=== PATIENT | female | born 1935 | race Caucasian/White ===

== ENCOUNTER 2021-03-13 23:26 | Inpatient (IN) | payer MEDICARE, OTHER ==
[~2021-03-13] VITALS: Ht 152.4 cm; Wt 77.1 kg
[2021-03-13] MEDS ORDERED: ISOS60TA72 PO (23:57)
[2021-03-13] MEDS ORDERED: AMLO2.5T4 PO (23:57)
[2021-03-13] MEDS ORDERED: METO25TA6 PO (23:57)
[2021-03-13] MEDS ORDERED: METF-494 PO (23:57)
[2021-03-13] MEDS ORDERED: GABA-532 PO (23:57)
[2021-03-14] MEDS ORDERED: levoFLOXacin 750 MG/D5W 150 ML PIGGYBACK IV ONE
--- NOTE | 2021-03-14 00:05 | NUR ---
PT BIB RA FROM HOME C/O SOB, PT O2 SAT ON FIELD WAS IN 80'S, PARAMEDICS GAVE BREATHING TX ON FIELD. HX OF PNA 3 DAYS AGO, NO SOB OR LABORED BREATHING UPON ARRIVAL. DENIES ANY CP/PRESSURE. NO GI/ DISTRESS. CLEAR SPEECH, COMPLETE SENTENCES. DAUGHTER AT BEDSIDE.
--- NOTE | 2021-03-14 00:06 | NUR ---
DR. BARAJAS AT BEDSIDE, MSE IN PROGRESS.
[2021-03-14] MEDS ORDERED: METF-440 PO (00:16)
[2021-03-14] MEDS ORDERED: VALS1TAB4 PO (00:16)
[2021-03-14] MEDS ORDERED: APIX2.5T PO (00:16)
[2021-03-14] MEDS ORDERED: ISOS30TA9 PO (00:16)
[2021-03-14] MEDS ORDERED: AMLO-212 PO (00:16)
[2021-03-14] MEDS ORDERED: SIMV-49 PO (00:16)
[2021-03-14] MEDS ORDERED: TICA90TA PO (00:16)
[2021-03-14] MEDS ORDERED: METO-358 PO (00:16)
[2021-03-14 00:19] LABS: HEMATOCRIT 31.9 % (31.2-41.9); MEAN CORPUSCULAR HEMOGLOBIN 30.5 uug (24.7-32.8); MEAN CORPUSCULAR VOLUME 92.2 fL (75.5-95.3); PLATELET COUNT (AUTO) 278 K/uL (179-408)
[2021-03-14 00:27] LABS: ABG BASE EXCESS -3.2 mmol/L; ABG HCO3 19.4 mmol/L; ABG PCO2 27.2 mmHg (35.0-45.0); ABG PO2 96.9 mmHg (75.0-100.0); ABG SITE LEFT RADIAL; COHb 0.3 % (0.5-1.5); MetHb 0.2 % (0.0-1.5); VENT MODE Nasal Cannula
[2021-03-14] MEDS ORDERED: levoFLOXacin 750MG/D5W 150 ML IV ONE (00:32)
[2021-03-14 00:41] LABS: CREATININE 1.2 mg/dL (0.6-1.3)
[2021-03-14 00:53] LABS: BILIRUBIN,DIRECT 0.1 mg/dL (0.0-0.2); BILIRUBIN,TOTAL 0.4 mg/dL (0.2-1.0); TOTAL PROTEIN, SERUM 7.3 g/dL (6.4-8.2)
[2021-03-14] MEDS ORDERED: ASPIRIN 81 MG TAB.CHEW PO ONE (01:00)
[2021-03-14] MEDS ORDERED: NITROGLYCERIN OINT 1 GM PACKET TP ONE ×2 (01:00→01:12)
[2021-03-14] MEDS ORDERED: ASPIRIN 81 MG TAB.CHEW ONE (01:12)
[2021-03-14] MEDS ORDERED: IV NORMAL SALINE 250 ML IV ONE (01:44)
[2021-03-14] MEDS ORDERED: IOHEXOL 350 100 ML INFUS..BTL ONE (01:44)
[2021-03-14] MEDS ORDERED: SWABABLE VALVE TRANSFER SET EA MC ONE (01:44)
--- NOTE | 2021-03-14 01:46 | NUR ---
PT TAKEN DOWN FOR CTA.
--- NOTE | 2021-03-14 02:00 | NUR ---
PT RETURNED FROM CT.
[2021-03-14] MEDS ORDERED: MAGNESIUM HYDROXIDE 30 ML LIQUID UDC PO PRN (03:15)
[2021-03-14] MEDS ORDERED: ONDANSETRON 4 MG/2 ML VIAL IV PRN (03:15)
[2021-03-14] MEDS ORDERED: REMEDY ESSENTIAL ZINC PASTE 113 GM TP PRN (03:15)
[2021-03-14] MEDS ORDERED: ENOXAPARIN SODIUM 30 MG/0.3 ML DISP.SYRIN SQ SCH (04:15)
--- NOTE | 2021-03-14 04:35 | NUR ---
ASSISTED PT TO AMBULATE TO RESTROOM, STEADY GAIT.
[2021-03-14] MEDS ORDERED: ENOXAPARIN SODIUM 30 MG/0.3 ML DISP.SYRIN ONE (04:52)
[2021-03-14] MEDS: ACETAMINOPHEN 325 MG TABLET PO PRN ×2 (06:00→17:04)
[2021-03-14] MEDS ORDERED: ACETAMINOPHEN 325 MG TABLET ONE (06:08)
[2021-03-14] MEDS: PANTOPRAZOLE SODIUM 40 MG TABLET.DR PO SCH (06:59)
[2021-03-14] MEDS ORDERED: PANTOPRAZOLE SODIUM 40 MG TABLET.DR PO ONE (07:07)
--- NOTE | 2021-03-14 07:44 | NUR ---
Patient is awake and alert with no complaints. She asked for some water, she drank a full cup. Denies pain ,has some mild SOB at rest. On O2, Sp02 at 99%
--- NOTE | 2021-03-14 09:31 | NUR ---
Patient's son visited her for 20 minutes. She is now sitting up eating breakfast.
--- NOTE | 2021-03-14 13:40 | NUR ---
Hand off report give3n to Khadijah ZUNIGA.
--- NOTE | 2021-03-14 13:55 | NUR ---
received from ER per bryce awake alert and oriented, Frisian speaking, daughter with her, does interpret for her, initial assessment done, oriented to bed controls and call button, bed alarm on, denies of pain, tele applied-SR BBB 70's, 02 at 4l/nc- sat at 99%, gets short of breath with exertion, head of bed elevated, denies of pain at this time, call light within reach, placed on droplet isolation PCR pending
[2021-03-14 13:59] VITALS: BP 105/51
[2021-03-14] MEDS ORDERED: DEXTROSE 50% 50 ML DISP.SYRIN IV PRN (14:15)
[2021-03-14 16:05] VITALS: BP 147/62
[2021-03-14] MEDS: BLOOD SUGAR DIAGNOSTIC 1 EACH STRIP VI SCH ×2 (17:02→21:41)
[2021-03-14] MEDS: INSULIN REGULAR, HUMAN 300 UNIT/3 ML VIAL SQ PRN ×2 (17:03→21:42)
--- NOTE | 2021-03-14 17:04 | NUR ---
medicated for c/o pain on the left knee
[2021-03-14] MEDS: TICAGRELOR 90 MG TABLET PO SCH (17:05)
[2021-03-14] MEDS ORDERED: METFORMIN HCL 500 MG TABLET PO SCH (18:00)
--- NOTE | 2021-03-14 18:11 | NUR ---
states feeling better, pain relieved, no distress noted, remains on 4l/nc with sat 99%, mrsa swab done and sent to lab, tele remains SR BBB 80's, safety measures maintained, call light within reach
[2021-03-14 20:00] VITALS: BP 136/55
[2021-03-14] MEDS ORDERED: GABA-532 PO (20:12)
[2021-03-14] MEDS ORDERED: DONE10TA44 PO (20:13)
[2021-03-14] MEDS ORDERED: ICOS1CAP PO (20:14)
[2021-03-14] MEDS ORDERED: MEMA7CAP2 PO (20:15)
[2021-03-14] MEDS ORDERED: ERGO500040 PO (20:17)
[2021-03-14] MEDS ORDERED: FERR325T28 PO (20:17)
[2021-03-14] MEDS ORDERED: ASCO100031 PO (20:18)
[2021-03-14] MEDS ORDERED: SIMVASTATIN 40 MG TABLET PO SCH (21:00)
[2021-03-14] MEDS: APIXABAN 2.5 MG TABLET PO SCH (21:31)
[2021-03-14] MEDS: SIMVASTATIN 20 MG TABLET PO SCH (21:31)
[2021-03-15] MEDS ORDERED: levoFLOXacin 750MG/D5W 750 MG in PREMIXED 1 EACH IV SCH
[2021-03-15 04:00] VITALS: BP 135/57
[2021-03-15] MEDS: PANTOPRAZOLE SODIUM 40 MG TABLET.DR PO SCH (06:42)
[2021-03-15] MEDS: BLOOD SUGAR DIAGNOSTIC 1 EACH STRIP VI SCH ×4 (06:43→20:50)
[2021-03-15 06:55] LABS: MEAN CORPUSCULAR HEMOGLOBIN 30.9 uug (24.7-32.8); MEAN CORPUSCULAR VOLUME 91.9 fL (75.5-95.3); PLATELET COUNT (AUTO) 227 K/uL (179-408)
[2021-03-15 07:32] LABS: BILIRUBIN,TOTAL 0.5 mg/dL (0.2-1.0); CREATININE 1.2 mg/dL (0.6-1.3); MAGNESIUM 1.6 mg/dL (1.8-2.4); PHOSPHOROUS 3.8 mg/dL (2.5-4.9); POTASSIUM 4.1 mmol/L (3.5-5.1); TOTAL PROTEIN, SERUM 6.9 g/dL (6.4-8.2)
[2021-03-15] MEDS: INSULIN REGULAR, HUMAN 300 UNIT/3 ML VIAL SQ PRN ×4 (08:30→20:52)
--- NOTE | 2021-03-15 08:30 | NUR ---
awake alert and and oriented, denies of pain, comfortable on 4l/nc sat at 99%, tele ST 101, needs attended and breakfast served, call light within reach
[2021-03-15] MEDS: HYDROCHLOROTHIAZIDE 12.5 MG CAPSULE PO SCH (08:31)
[2021-03-15] MEDS: TICAGRELOR 90 MG TABLET PO SCH ×2 (08:33→17:07)
[2021-03-15] MEDS: APIXABAN 2.5 MG TABLET PO SCH ×2 (08:33→20:40)
[2021-03-15] MEDS: METOPROLOL SUCCINATE XL 50 MG TAB.SR.24H PO SCH (08:43)
[2021-03-15] MEDS: ISOSORBIDE DINITRATE 10 MG TABLET PO SCH (08:44)
[2021-03-15] MEDS ORDERED: ASPIRIN EC 81 MG TABLET.DR PO SCH (09:00)
[2021-03-15] MEDS ORDERED: Medication Not On Formulary EA (Isosorbide Dinitrate 30 MG) PO SCH (09:00)
[2021-03-15] MEDS: AMLODIPINE 5 MG TABLET PO SCH (09:00)
[2021-03-15] MEDS: VALSARTAN 160 MG TABLET PO SCH (09:00)
--- NOTE | 2021-03-15 09:30 | NUR ---
Heart rate up to 130's a fib, pt denies of chest pain comfortable, BP 127/47 sat at 99%, rapid response called, stat ekg done showing a fib with RVR, called Abram Fischer and informed with orders- carried out, called Dr Strong with orders for amiodarone bolus followed by drip per protocol, continued to monitor
[2021-03-15] MEDS ORDERED: METOPROLOL TARTRATE 5 MG/5 ML VIAL IVP ONE (09:45)
[2021-03-15] MEDS: MAGNESIUM SULFATE/D5W 100 ML IV SCH ×2 (09:57→11:12)
[2021-03-15] MEDS ORDERED: AMIODARONE HCL IV 150 MG in IV DEXTROSE 5% 100 ML IV ONE (10:45)
--- NOTE | 2021-03-15 11:00 | NUR ---
amiodarone bolus followed by amiodarone 1mg/min at 33.3ml/hr started, will continue to monitor
[2021-03-15] MEDS: AMIODARONE HCL IV 450 MG in IV DEXTROSE 5% 250 ML IV PRN ×3 (11:39→22:30)
[2021-03-15 11:56] VITALS: BP 110/54
--- NOTE | 2021-03-15 12:00 | NUR ---
still on afib rvr 120's, no distress noted, BP remains stable, will continue to monitor
--- NOTE | 2021-03-15 14:13 | NUR ---
converted to SR 80's, amiodarone drip at 1mg/min ongoing
[2021-03-15] MEDS ORDERED: SIMV-46 PO (15:54)
--- NOTE | 2021-03-15 17:40 | NUR ---
remains on SR on 76, drip decreased to 0.5mg/min as per protocol, no distress noted, all needs attended and met, call light within reach
[2021-03-15 20:21] VITALS: BP 122/50
[2021-03-15] MEDS: SIMVASTATIN 20 MG TABLET PO SCH (20:39)
[2021-03-15] MEDS: CEFTRIAXONE 1 G in IV DEXTROSE 5% 50 ML IV SCH (23:37)
[2021-03-16] MEDS ORDERED: levoFLOXacin 750MG/D5W 750 MG in PREMIXED 1 EACH IV SCH
[2021-03-16 00:09] VITALS: BP 111/49
[2021-03-16 04:24] VITALS: BP 108/44
[2021-03-16] MEDS: BLOOD SUGAR DIAGNOSTIC 1 EACH STRIP VI SCH ×4 (06:32→21:07)
[2021-03-16] MEDS: PANTOPRAZOLE SODIUM 40 MG TABLET.DR PO SCH (06:32)
--- NOTE | 2021-03-16 06:50 | NUR ---
pt rested well in between care; remains on amio drip at 0.5 mg; needs attended; safety maintained; VS as charted. continue to monitor; continue plan of care.
[2021-03-16 07:11] LABS: HEMATOCRIT 26.8 % (31.2-41.9); MEAN CORPUSCULAR HEMOGLOBIN 30.6 uug (24.7-32.8); MEAN CORPUSCULAR VOLUME 90.9 fL (75.5-95.3); PLATELET COUNT (AUTO) 217 K/uL (179-408)
[2021-03-16 07:21] LABS: NEUTROPHILS % (MANUAL) 0 % (42-75)
[2021-03-16 07:28] LABS: CARBON DIOXIDE 24 mmol/L (21-32); CHLORIDE 100 mmol/L (98-107); CREATININE 1.4 mg/dL (0.6-1.3); GLUCOSE 149 mg/dL (74-106); MAGNESIUM 2.4 mg/dL (1.8-2.4); POTASSIUM 3.8 mmol/L (3.5-5.1); UREA NITROGEN, BLOOD 27 mg/dL (7-18)
[2021-03-16 08:00] VITALS: BP 125/46
--- NOTE | 2021-03-16 08:00 | NUR ---
AWAKE ALERT AND ORIENTED X3, 4L VIA NC SATURATING 95%-97%. OCCASIONAL DRY COUGH NOTED SR ON MONITOR
[2021-03-16] MEDS: HYDROCHLOROTHIAZIDE 12.5 MG CAPSULE PO SCH (08:11)
[2021-03-16] MEDS: AMLODIPINE 5 MG TABLET PO SCH (08:14)
[2021-03-16] MEDS: METFORMIN HCL 500 MG TABLET PO SCH ×2 (08:14→17:28)
[2021-03-16] MEDS: ISOSORBIDE DINITRATE 10 MG TABLET PO SCH (08:14)
[2021-03-16] MEDS: VALSARTAN 160 MG TABLET PO SCH (08:14)
[2021-03-16] MEDS: APIXABAN 2.5 MG TABLET PO SCH ×2 (08:15→20:50)
[2021-03-16] MEDS: METOPROLOL SUCCINATE XL 50 MG TAB.SR.24H PO SCH (08:16)
[2021-03-16] MEDS: INSULIN REGULAR, HUMAN 300 UNIT/3 ML VIAL SQ PRN ×3 (08:18→20:59)
[2021-03-16] MEDS: TICAGRELOR 90 MG TABLET PO SCH ×2 (08:19→16:08)
--- NOTE | 2021-03-16 10:00 | NUR ---
SEEN BY DR ORTIZ FOR FOLLOW-UP, AMIODARONE DRIP DISCONTINUED AND WILL START ON PO AMIODARONE. PATIENT REMAINS ON SR ON MONITOR
[2021-03-16] MEDS: AMIODARONE HCL 200 MG TABLET PO SCH ×2 (11:42→20:49)
[2021-03-16 12:00] VITALS: BP 116/50
--- NOTE | 2021-03-16 12:00 | NUR ---
PATIENT UP ON A COMMODE WITH 2L O2 PATIENT TOLERATED WELL SATURATING 98%. SR ON MONITOR, AMIODARONE DRIP COMPLETED. WILL OBSERVE
[2021-03-16] MEDS ORDERED: ERGOCALCIFEROL 50,000 UNIT CAPSULE PO SCH (13:45)
[2021-03-16 16:00] VITALS: BP 131/59
[2021-03-16] MEDS: FERROUS SULFATE 325 MG TABEC PO SCH (16:05)
[2021-03-16] MEDS: ASCORBIC ACID 500 MG TABLET PO SCH (16:07)
[2021-03-16] MEDS: MEMANTINE HCL 5 MG TABLET PO SCH (16:07)
[2021-03-16] MEDS: GABAPENTIN 100 MG CAPSULE PO SCH (16:08)
[2021-03-16] MEDS ORDERED: ASCORBIC ACID 1000 MG PO SCH (17:00)
--- NOTE | 2021-03-16 17:21 | NUR ---
RESTING COMFORTABLY IN BED WITH O2 AT 2L NC SATURATING 97% NO [place] OF DISTRESS. SR ON MONITOR
[2021-03-16] MEDS: SIMVASTATIN 20 MG TABLET PO SCH (20:50)
[2021-03-16 20:59] VITALS: BP 141/52
[2021-03-16] MEDS ORDERED: SIMVASTATIN 20 MG TABLET PO SCH (21:00)
[2021-03-16] MEDS: CEFTRIAXONE 1 G in IV DEXTROSE 5% 50 ML IV SCH (23:30)
[2021-03-17 00:35] VITALS: BP 149/57
[2021-03-17 04:00] VITALS: BP 130/52
[2021-03-17] MEDS: BLOOD SUGAR DIAGNOSTIC 1 EACH STRIP VI SCH ×4 (06:22→20:36)
[2021-03-17] MEDS: PANTOPRAZOLE SODIUM 40 MG TABLET.DR PO SCH (06:22)
[2021-03-17 06:26] LABS: HEMATOCRIT 25.8 % (31.2-41.9); MEAN CORPUSCULAR HEMOGLOBIN 30.1 uug (24.7-32.8); MEAN CORPUSCULAR VOLUME 89.9 fL (75.5-95.3); PLATELET COUNT (AUTO) 227 K/uL (179-408)
[2021-03-17 06:48] LABS: NEUTROPHILS % (MANUAL) 0 % (42-75)
[2021-03-17 07:03] LABS: CREATININE 1.3 mg/dL (0.6-1.3); POTASSIUM 3.6 mmol/L (3.5-5.1)
[2021-03-17] MEDS: INSULIN REGULAR, HUMAN 300 UNIT/3 ML VIAL SQ PRN ×3 (08:07→20:37)
[2021-03-17] MEDS: METFORMIN HCL 500 MG TABLET PO SCH ×2 (08:13→17:20)
[2021-03-17] MEDS: ASCORBIC ACID 500 MG TABLET PO SCH ×2 (08:13→16:43)
[2021-03-17] MEDS: MEMANTINE HCL 5 MG TABLET PO SCH ×2 (08:13→16:43)
[2021-03-17] MEDS: GABAPENTIN 100 MG CAPSULE PO SCH ×2 (08:13→16:43)
[2021-03-17] MEDS: FERROUS SULFATE 325 MG TABEC PO SCH ×2 (08:13→16:42)
[2021-03-17] MEDS: APIXABAN 2.5 MG TABLET PO SCH ×2 (08:14→20:35)
[2021-03-17] MEDS: DONEPEZIL 10 MG TABLET PO SCH (08:15)
[2021-03-17] MEDS ORDERED: ERGOCALCIFEROL 50,000 UNIT CAPSULE PO SCH (09:00)
[2021-03-17] MEDS ORDERED: Medication Not On Formulary EA (Memantine HCl (Memantine HCl ER) 7 MG) PO SCH (09:00)
[2021-03-17] MEDS ORDERED: Icosapent Ethyl (Vascepa) 1 GM) PO SCH (09:00)
[2021-03-17] MEDS: VALSARTAN 160 MG TABLET PO SCH (09:38)
[2021-03-17] MEDS: HYDROCHLOROTHIAZIDE 12.5 MG CAPSULE PO SCH (09:39)
[2021-03-17] MEDS: ISOSORBIDE DINITRATE 10 MG TABLET PO SCH (09:39)
[2021-03-17] MEDS: METOPROLOL SUCCINATE XL 50 MG TAB.SR.24H PO SCH (09:53)
[2021-03-17] MEDS: TICAGRELOR 90 MG TABLET PO SCH ×2 (09:57→16:45)
[2021-03-17 10:54] VITALS: BP 122/56
[2021-03-17] MEDS: AMIODARONE HCL 200 MG TABLET PO SCH ×2 (11:58→20:34)
[2021-03-17] MEDS: AMLODIPINE 5 MG TABLET PO SCH (11:58)
[2021-03-17 15:19] VITALS: BP 125/70
--- NOTE | 2021-03-17 18:24 | NUR ---
Patient resting in bed. AOx3-4. On room air, O2 saturating 94-96%. No signs of acute distress. Patient denies pain/ discomfort. Patient denies SOB/ . Patient NSR on ring stamper. Compliant with medications and care. Bed alarm on. Call light within reach. Patient kept clean and comfortable. Will endorse to incoming shift for continuity of care.
[2021-03-17] MEDS: VASCEPA 1 GM PO SCH (18:29)
[2021-03-17 20:24] VITALS: BP 141/55
[2021-03-17] MEDS: SIMVASTATIN 20 MG TABLET PO SCH (20:35)
[2021-03-17] MEDS: CEFTRIAXONE 1 G in IV DEXTROSE 5% 50 ML IV SCH (23:31)
[2021-03-18 00:09] VITALS: BP 136/45
[2021-03-18 04:24] VITALS: BP 151/76
[2021-03-18] MEDS: PANTOPRAZOLE SODIUM 40 MG TABLET.DR PO SCH (06:05)
[2021-03-18] MEDS: BLOOD SUGAR DIAGNOSTIC 1 EACH STRIP VI SCH ×4 (06:07→22:09)
--- NOTE | 2021-03-18 06:39 | NUR ---
Pt rested well in between care; no acute distress; on 2L NC; SR on tele; hourly rounds done; continue to monitor; continue plan of care
[2021-03-18 06:48] LABS: HEMATOCRIT 29.4 % (31.2-41.9); MEAN CORPUSCULAR HEMOGLOBIN 29.8 uug (24.7-32.8); MEAN CORPUSCULAR VOLUME 90.1 fL (75.5-95.3); PLATELET COUNT (AUTO) 262 K/uL (179-408)
[2021-03-18 07:23] LABS: POTASSIUM 4.1 mmol/L (3.5-5.1)
--- NOTE | 2021-03-18 07:25 | NUR ---
Received awake in bed no acute distress. Comfortable on room air o2 sat 95%. No sob noted. SR on telemonitor. Denies pain. IV is intact no signs of infiltration. No complaints at this time. Call light and personal belongings in reach.
[2021-03-18] MEDS: METFORMIN HCL 500 MG TABLET PO SCH ×2 (08:10→17:50)
[2021-03-18] MEDS: MEMANTINE HCL 5 MG TABLET PO SCH ×2 (08:12→17:50)
[2021-03-18] MEDS: ASCORBIC ACID 500 MG TABLET PO SCH ×2 (08:12→17:51)
[2021-03-18] MEDS: DONEPEZIL 10 MG TABLET PO SCH (08:12)
[2021-03-18] MEDS: VASCEPA 1 GM PO SCH (08:12)
[2021-03-18] MEDS: APIXABAN 2.5 MG TABLET PO SCH ×2 (08:13→21:36)
[2021-03-18] MEDS: FERROUS SULFATE 325 MG TABEC PO SCH ×2 (08:13→17:50)
[2021-03-18] MEDS: AMIODARONE HCL 200 MG TABLET PO SCH (08:14)
[2021-03-18] MEDS: TICAGRELOR 90 MG TABLET PO SCH ×2 (08:14→17:53)
[2021-03-18] MEDS: HYDROCHLOROTHIAZIDE 12.5 MG CAPSULE PO SCH (08:14)
[2021-03-18] MEDS: AMLODIPINE 5 MG TABLET PO SCH (08:15)
[2021-03-18] MEDS: ISOSORBIDE DINITRATE 10 MG TABLET PO SCH (08:15)
[2021-03-18] MEDS: GABAPENTIN 100 MG CAPSULE PO SCH ×2 (08:15→17:51)
[2021-03-18] MEDS: METOPROLOL SUCCINATE XL 50 MG TAB.SR.24H PO SCH (08:17)
[2021-03-18] MEDS: INSULIN REGULAR, HUMAN 300 UNIT/3 ML VIAL SQ PRN ×3 (08:20→17:50)
[2021-03-18] MEDS ORDERED: FUROSEMIDE 20 MG/2 ML VIAL IV ONE (08:45)
[2021-03-18] MEDS: VALSARTAN 160 MG TABLET PO SCH (11:37)
[2021-03-18 12:10] VITALS: BP 125/58
[2021-03-18 16:19] VITALS: BP 122/56
--- NOTE | 2021-03-18 18:50 | NUR ---
Compliant with care. Reinserted Iv on right hand 22g d/t both old IV sites noted leaking. Denies pain or sob. Needs attended.
[2021-03-18 20:20] VITALS: BP 131/61
[2021-03-18] MEDS: SIMVASTATIN 20 MG TABLET PO SCH (21:35)
[2021-03-19 00:20] VITALS: BP 142/58
[2021-03-19] MEDS: CEFTRIAXONE 1 G in IV DEXTROSE 5% 50 ML IV SCH (00:22)
[2021-03-19 04:58] VITALS: BP 138/63
--- NOTE | 2021-03-19 05:52 | NUR ---
Slept throughout the night. No distress noted. IV site intact. Denies SOB or pain. Able to make needs known. Will endorse to day shift.
[2021-03-19] MEDS: PANTOPRAZOLE SODIUM 40 MG TABLET.DR PO SCH (06:22)
[2021-03-19] MEDS: BLOOD SUGAR DIAGNOSTIC 1 EACH STRIP VI SCH ×2 (06:31→11:26)
[2021-03-19 07:10] LABS: HEMATOCRIT 28.9 % (31.2-41.9); MEAN CORPUSCULAR HEMOGLOBIN 30.2 uug (24.7-32.8); MEAN CORPUSCULAR VOLUME 89.7 fL (75.5-95.3); PLATELET COUNT (AUTO) 278 K/uL (179-408)
[2021-03-19 07:26] LABS: MAGNESIUM 1.7 mg/dL (1.8-2.4); PHOSPHOROUS 4.3 mg/dL (2.5-4.9); POTASSIUM 3.6 mmol/L (3.5-5.1)
[2021-03-19] MEDS: METFORMIN HCL 500 MG TABLET PO SCH (08:50)
[2021-03-19] MEDS: ASCORBIC ACID 500 MG TABLET PO SCH (08:50)
[2021-03-19] MEDS: MEMANTINE HCL 5 MG TABLET PO SCH (08:54)
[2021-03-19] MEDS: VALSARTAN 160 MG TABLET PO SCH (08:54)
[2021-03-19] MEDS: GABAPENTIN 100 MG CAPSULE PO SCH (08:54)
[2021-03-19] MEDS: FERROUS SULFATE 325 MG TABEC PO SCH (08:54)
[2021-03-19] MEDS: HYDROCHLOROTHIAZIDE 12.5 MG CAPSULE PO SCH (08:54)
[2021-03-19] MEDS: DONEPEZIL 10 MG TABLET PO SCH (08:54)
[2021-03-19] MEDS: ISOSORBIDE DINITRATE 10 MG TABLET PO SCH (08:57)
[2021-03-19] MEDS: VASCEPA 1 GM PO SCH (08:58)
[2021-03-19] MEDS: AMLODIPINE 5 MG TABLET PO SCH (08:58)
[2021-03-19] MEDS: METOPROLOL SUCCINATE XL 50 MG TAB.SR.24H PO SCH (08:59)
[2021-03-19] MEDS: AMIODARONE HCL 200 MG TABLET PO SCH (09:00)
[2021-03-19] MEDS: APIXABAN 2.5 MG TABLET PO SCH (09:01)
[2021-03-19] MEDS ORDERED: MAGNESIUM OXIDE 400 MG TABLET PO ONE (09:15)
[2021-03-19] MEDS ORDERED: POTASSIUM CHLORIDE 20 MEQ POWDER PACKET GT ONE (09:30)
[2021-03-19] MEDS ORDERED: POTASSIUM CHLORIDE 20 MEQ TAB.PRT.SR PO ONE (09:30)
[2021-03-19] MEDS: TICAGRELOR 90 MG TABLET PO SCH (09:37)
[2021-03-19] MEDS: INSULIN REGULAR, HUMAN 300 UNIT/3 ML VIAL SQ PRN (11:29)
[2021-03-19] MEDS ORDERED: AMIO200T6 PO (12:17)
[2021-03-19] MEDS ORDERED: METO-357 PO (12:17)
[2021-03-19 13:48] VITALS: BP 120/54
--- NOTE | 2021-03-19 15:14 | NUR ---
Patient discharged form unit at 1515. IV site removed. ID badge removed. Medication regimen and discharge education provided.
== END 2021-03-19 15:20 | disposition home health service (06) | DRG 177 ==
LOC: ER 23:35 → TRANSITION 03-14 03:48 → TELE3 03-14 13:12 → TELE-TD3 03-15 10:39 → TELE3 03-16 11:47
PROVIDERS: ADMIT Nurse Practitioner Acute Care; ATTEND Hospitalist
DX: J15.6 Pneumonia due to other Gram-negative bacteria (principal); J96.01 Acute respiratory failure with hypoxia; I50.33 Acute on chronic diastolic (congestive) heart failure; N17.0 Acute kidney failure with tubular necrosis; I21.A1 Myocardial infarction type 2; I13.0 Hypertensive heart and chronic kidney disease with heart failure and stage 1 through stage 4 chronic kidney disease, or unspecified chronic kidney disease; E11.9 Type 2 diabetes mellitus without complications; Z20.822 Contact with and (suspected) exposure to COVID-19; E11.22 Type 2 diabetes mellitus with diabetic chronic kidney disease; E78.5 Hyperlipidemia, unspecified; E83.42 Hypomagnesemia; I48.0 Paroxysmal atrial fibrillation; N18.9 Chronic kidney disease, unspecified; D63.8 Anemia in other chronic diseases classified elsewhere; I25.10 Atherosclerotic heart disease of native coronary artery without angina pectoris; Z79.01 Long term (current) use of anticoagulants; E66.9 Obesity, unspecified; Z68.33 Body mass index [BMI] 33.0-33.9, adult; I70.8 Atherosclerosis of other arteries; Z95.5 Presence of coronary angioplasty implant and graft; Z79.84 Long term (current) use of oral hypoglycemic drugs
CPT/HCPCS: 36415; 36600; 70030-TC; 71045; 71275; 83605; 83735; 84100; 85025; 87040; 87400; 93005; 97161; A4663; G0378; J0282; J0696; J1650; J1815; J1940; J1956; J2405; J3475; J3490; J7050; J7060; Q9967; U0003